=== PATIENT | male | born 2000 | race Caucasian/White ===

== ENCOUNTER 2021-09-04 22:52 | Emergency (ER) | payer OTHER ==
[~2021-09-04] VITALS: Ht 167.6 cm; Wt 72.6 kg
[2021-09-04 23:39] LABS: HEMATOCRIT 44.8 % (42.0-52.0); HEMOGLOBIN 15.8 gm/dL (14.0-18.0); MCH 30.2 pg (26.0-34.0); MCHC 35.3 g/dL (28.0-37.0); MCV 85.5 fL (80.0-100.0); MPV 8.6 fl. (7.2-11.1); RBC 5.23 mil/uL (4.50-6.00); RDW-CV 12.2 % (10.5-14.5)
[2021-09-04 23:47] LABS: ALBUMIN 4.1 g/dL (3.4-5.0); CALCIUM 8.6 mg/dL (8.5-10.1); CREATININE 1.1 mg/dL (0.6-1.3); POTASSIUM 3.5 mmol/L (3.5-5.1); TOTAL BILIRUBIN 0.3 mg/dL (<0.1-1.0); TOTAL PROTEIN 7.2 g/dL (6.4-8.2)
[2021-09-05] MEDS ORDERED: OMEPRAZOLE 20 M20 M1 PO (00:05)
[2021-09-05] MEDS ORDERED: CARAFATE1 GM PO (00:05)
[2021-09-05 00:22] VITALS: BP 128/62
--- NOTE | 2021-09-07 10:36 | EKG ---
[place] [address] ELECTROCARDIOGRAM REPORT Name: ORQUIDEAKATY ARCE Room: [facility]#: [id number] Admission: 09/04/21 Attend Phys: Discharge: 09/05/21 Date of : 89 Date of Service: 09/04/212258 Report #: [id number] THIS REPORT FOR: //name// [facility] ED Test Date: 2021-09-04 Test Time: 22:59:40 Pat Name: KATY HEARD Department: Room: Gender: Cashier Receptionist: : 2000 Requested By: Seble Dumont Order Number: [id number] MD: Bahman Guadarrama Measurements Intervals [place] Rate: 75 P: -16 [place]: 131 QRS: 48 QRSD: 87 T: 24 QT: 347 QTc: 388 Interpretive Statements Sinus rhythm No previous ECG available for comparison Electronically Signed On 09-07-2021 10:36:05 [employer] by Bahman Guadarrama [email or web address] <ELECTRONICALLY SIGNED> By: Bahman Guadarrama MD, [facility] 09/07/21 1036 [id number] 58 Bahman Guadarrama MD, FACC /EPI
== END 2021-09-05 00:22 | disposition home or self-care (01) ==
LOC: M.ERS 22:52
PROVIDERS: Personal Emergency Response Attendant
DX: K21.9 Gastro-esophageal reflux disease without esophagitis (principal); F41.1 Generalized anxiety disorder; R07.89 Other chest pain